=== PATIENT | male | born 1975 | race Caucasian/White ===

== ENCOUNTER 2024-03-28 16:04 | Emergency (ER) | payer OTHER ==
[~2024-03-28] VITALS: Ht 182.9 cm; Wt 176.0 kg
[2024-03-28 17:15] VITALS: BP 185/135; PULSE 76; RESP 18; TEMP 98.4; O2SAT 98
== END 2024-03-28 20:33 | disposition left against medical advice (07) ==
LOC: ER 16:05
DX: R10.9 Unspecified abdominal pain (principal); N48.89 Other specified disorders of penis; Z53.21 Procedure and treatment not carried out due to patient leaving prior to being seen by health care provider